=== PATIENT | male | born 1940 | race Caucasian/White ===

== ENCOUNTER 2016-03-11 09:27 | Inpatient (IN) | payer BC ==
[~2016-03-11] VITALS: Ht 182.9 cm; Wt 55.3 kg
[2016-03-11] MEDS ORDERED: ASPIRIN 81 MG CHEW TAB ONE (09:55)
[2016-03-11] MEDS ORDERED: ACETAMINOPHEN 325 MG TAB ONE (10:04)
[2016-03-11] MEDS ORDERED: AZITHROMYCIN 500 MG VIAL IV ONE (11:13)
[2016-03-11] MEDS ORDERED: SODIUM CHLORIDE 0.9% 100 ML IV ONE ×2 (11:14→11:30)
[2016-03-11] MEDS ORDERED: CEFTRIAXONE 1 GM VIAL ONE ×2 (11:14→11:30)
[2016-03-11] MEDS ORDERED: DEXTROSE 5% AVIVA 250 ML IV ONE (11:14)
[2016-03-11] MEDS ORDERED: SODIUM CHLORIDE 0.9% 1,000 ML ONE ×2 (11:14→11:30)
[2016-03-11] MEDS ORDERED: SALINE FLUSH 10 ML FLUSH PRN (11:55)
[2016-03-11] MEDS ORDERED: ONDANSETRON 4 MG VIAL IV PUSH PRN (11:55)
[2016-03-11] MEDS ORDERED: PHARMACY TO DOSE IV SCH ×2 (11:55)
[2016-03-11] MEDS ORDERED: PHARMACY TO DOSE SUBQ SCH (11:55)
[2016-03-11] MEDS ORDERED: ACETAMINOPHEN 325 MG TAB PO PRN (11:55)
[2016-03-11 13:54] VITALS: BP_SYST 110; BP_SYST 124; RESP 20; TEMP 99; BMI 17.2
[2016-03-11] MEDS ORDERED: ADD HEIGHT XX ONE (14:50)
[2016-03-11] MEDS ORDERED: [UNRECOGNIZED DRUG - OTHER] XX ONE (14:50)
[2016-03-11 16:13] VITALS: BP_SYST 102; RESP 18; TEMP 98.8
[2016-03-11] MEDS: ENOXAPARIN 40 MG/0.4 ML SYR SUBQ SCH (16:59)
[2016-03-11] MEDS ORDERED: NEB-ALBUTEROL 2.5 MG/3 ML INH PRN (18:05)
[2016-03-11] MEDS: NEB-BROVANA 15 MCG/2 ML INH SCH (19:17)
[2016-03-11 19:40] VITALS: BP_SYST 119; RESP 16; TEMP 98.9
[2016-03-11] MEDS: SALINE FLUSH 10 ML FLUSH SCH (20:22)
[2016-03-11] MEDS: DOCUSATE SOD 100 MG CAP PO SCH (20:22)
[2016-03-11 23:23] VITALS: BP_SYST 123; RESP 18; TEMP 99.2
[2016-03-12 03:52] VITALS: BP_SYST 112; RESP 18; TEMP 97.7
[2016-03-12] MEDS: SODIUM CHLORIDE 0.9% FLUSH BAG 500 ML IV SCH (06:00)
[2016-03-12] MEDS: NEB-BROVANA 15 MCG/2 ML INH SCH ×2 (06:25→18:27)
[2016-03-12] MEDS: MDI-SPIRIVA 5 DOSES INH SCH (06:26)
[2016-03-12 07:16] VITALS: BP_SYST 126; RESP 18; TEMP 98
[2016-03-12 08:38] VITALS: Ht 182.9 cm; Wt 55.3 kg
[2016-03-12] MEDS: SALINE FLUSH 10 ML FLUSH SCH ×2 (08:41→21:45)
[2016-03-12] MEDS: CEFTRIAXONE 2 GM in SODIUM CHLORIDE 0.9% 50 ML IV SCH (08:42)
[2016-03-12] MEDS: ENOXAPARIN 40 MG/0.4 ML SYR SUBQ SCH (08:43)
[2016-03-12] MEDS: AZITHROMYCIN 500 MG in SODIUM CHLORIDE 0.9% 250 ML IV SCH (10:25)
[2016-03-12 11:59] VITALS: BP_SYST 136; RESP 18; TEMP 98.5
[2016-03-12 15:29] VITALS: BP_SYST 134; RESP 18; TEMP 98.1
[2016-03-12 19:38] VITALS: BP_SYST 130; RESP 20; TEMP 98.1
[2016-03-12] MEDS: DOCUSATE SOD 100 MG CAP PO SCH (21:46)
[2016-03-12 23:46] VITALS: BP_SYST 136; RESP 20; TEMP 98
[2016-03-13] MEDS: SODIUM CHLORIDE 0.9% FLUSH BAG 500 ML IV SCH (04:37)
[2016-03-13 04:51] VITALS: BP_SYST 125; RESP 20; TEMP 98
[2016-03-13] MEDS: NEB-BROVANA 15 MCG/2 ML INH SCH (06:14)
[2016-03-13] MEDS: MDI-SPIRIVA 5 DOSES INH SCH (06:16)
[2016-03-13 07:37] VITALS: BP_SYST 125; RESP 20; TEMP 97.4
[2016-03-13] MEDS: SALINE FLUSH 10 ML FLUSH SCH (08:32)
[2016-03-13] MEDS: CEFTRIAXONE 2 GM in SODIUM CHLORIDE 0.9% 50 ML IV SCH (08:32)
[2016-03-13] MEDS: ENOXAPARIN 40 MG/0.4 ML SYR SUBQ SCH (08:33)
[2016-03-13] MEDS: AZITHROMYCIN 500 MG in SODIUM CHLORIDE 0.9% 250 ML IV SCH (12:12)
[2016-03-13 16:28] VITALS: BP_SYST 125; RESP 20; TEMP 97.4
== END 2016-03-13 18:38 | disposition home or self-care (01) | DRG 871 ==
LOC: ENRESERVDT → ENRESERVTM → ER 09:27 → EMR 11:51 → 4THE 13:40
PROVIDERS: ADMIT Family Medicine; ATTEND Family Medicine
DX: A41.9 Sepsis, unspecified organism (principal); J18.9 Pneumonia, unspecified organism; J96.01 Acute respiratory failure with hypoxia; E87.2 Acidosis; J44.0 Chronic obstructive pulmonary disease with (acute) lower respiratory infection; D47.3 Essential (hemorrhagic) thrombocythemia; Z87.891 Personal history of nicotine dependence; Z79.51 Long term (current) use of inhaled steroids; F10.21 Alcohol dependence, in remission; I10 Essential (primary) hypertension
CPT/HCPCS: 71010; 80048; 80053; 81003; 82550; 82947; 83605; 83735; 84145; 84484; 85007; 85025; 85027; 85610; 85730; 87040; 87071; 87077; 87088; 87181; 87184; 87186; 87278; 87299; 93005; 94640; 94664; 94799; 96360; 96361; 96365; 96367; 99233